=== PATIENT | female | born 1990 | race Caucasian/White ===

== ENCOUNTER 2020-04-27 01:04 | Emergency (ER) | payer MEDICAID ==
[2020-04-27] MEDS ORDERED: Ibuprofen 600 MG Tab PO ONE (01:06)
[2020-04-27] MEDS ORDERED: Acetaminophen 500 MG Tab PO ONE (01:06)
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
== END 2020-04-27 02:47 | disposition home or self-care (01) ==
LOC: MW.ED 01:04
DX: S06.0X9A Concussion with loss of consciousness of unspecified duration, initial encounter (principal); J45.909 Unspecified asthma, uncomplicated; F17.210 Nicotine dependence, cigarettes, uncomplicated; Z88.8 Allergy status to other drugs, medicaments and biological substances; Y04.0XXA Assault by unarmed brawl or fight, initial encounter
CPT/HCPCS: 70450; 72125; 99284; A9270; 99283